=== PATIENT | female | born 1965 | race Caucasian/White ===

== ENCOUNTER 2017-01-26 11:58 | Emergency (ER) | payer OTHER ==
[2017-01-26] MEDS ORDERED: IBUPROFEN 600 MG TAB PO STA (12:49)
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
--- NOTE | 2017-01-26 13:52 | XR ---
EXAMINATION TYPE: XR shoulder complete RT DATE OF EXAM: 01/26/2017 1:48 PM COMPARISON: NONE HISTORY: Pain TECHNIQUE: 3 views FINDINGS: There is slight widening of the AC joint space. I see no fracture nor dislocation. Leno hum eral joint is intact. IMPRESSION: Slight widening of the AC joint space could relate to mild ligamentous tear. This measure s 8 mm. No fracture. Coracoclavicular joint space is normal.
--- NOTE | 2017-01-26 13:53 | XR ---
EXAMINATION TYPE: XR spine complete AP and Lat DATE OF EXAM: 01/26/2017 1:48 PM COMPARISON: NONE HISTORY: Pain TECHNIQUE: 10 views FINDINGS: Cervical thoracic and lumbar vertebra have normal alignment. Disc spaces are fairly normal. I see no compression fracture. Posterior elements appear intact. There is no thoracic paraspinal mas s. There is aortoiliac graft noted. Atlantoaxial facet joint is normal. There are no cervical ribs. IMPRESSION: Normal cervical thoracic and lumbar spine. No fracture.
[2017-01-26 14:20] VITALS: BP 150/68; PULSE 90; RESP 20; TEMP 98
== END 2017-01-26 14:19 | disposition home or self-care (01) ==
LOC: EC 11:58
DX: M25.511 Pain in right shoulder (principal); M54.2 Cervicalgia; M54.5 Low back pain; I25.10 Atherosclerotic heart disease of native coronary artery without angina pectoris; F17.200 Nicotine dependence, unspecified, uncomplicated; V43.52XA Car driver injured in collision with other type car in traffic accident, initial encounter; Y92.89 Other specified places as the place of occurrence of the external cause; Z79.82 Long term (current) use of aspirin; Z79.899 Other long term (current) drug therapy
CPT/HCPCS: 72082; 99284

== ENCOUNTER → 2017-05-16 | Outpatient (CLI) | payer OTHER ==
--- NOTE | 2017-05-21 08:21 | MM ---
Reason for exam: screening (asymptomatic). Last mammogram was performed 1 year ago. History: Family history of breast cancer in grandmother and premenopausal breast cancer in mother at age 40. Took hormonal contraceptives for 9 years. Physical Findings: A clinical breast exam by your physician is recommended on an annual basis and results should be correlated with mammographic findings. MG 3D Screening Mammo W/Cad Bilateral CC and MLO view(s) were taken. Prior study comparison: May 25, 2016, bilateral MG diagnostic mammo w CAD CAITLIN. March 29, 2015, bilateral MG screening mammo w CAD. The breast tissue is extremely dense which could obscure a lesion on mammography. Finding: There are dystrophic, linear calcifications in the upper outer quadrant, middle position of the right breast 3cm from the nipple. New finding since May 25, 2016. ASSESSMENT: Incomplete: need additional imaging evaluation, BI-RAD 0 RECOMMENDATION: Special view mammogram of the right breast. [facility] will attempt to contact patient to return for supplemental views.
== END | disposition home or self-care (01) ==
LOC: RADMAMWWP 14:45
PROVIDERS: ATTEND Family Medicine
DX: Z12.31 Encounter for screening mammogram for malignant neoplasm of breast (principal)
CPT/HCPCS: 77063; G0202

== ENCOUNTER → 2017-05-22 | Outpatient (CLI) | payer OTHER ==
--- NOTE | 2017-05-22 14:36 | MM ---
Reason for exam: additional evaluation requested from abnormal screening. Last mammogram was performed less than 1 month ago. History: Family history of breast cancer in grandmother and premenopausal breast cancer in mother at age 40. Took hormonal contraceptives for 9 years. Physical Findings: Nurse did not find any significant physical abnormalities on exam. MG 3D Work Up W/Cad RT ML, CC with magnification, and ML with magnification view(s) were taken of the right breast. Prior study comparison: May 16, 2017, bilateral MG 3d screening mammo w/cad. May 25, 2016, bilateral MG diagnostic mammo w CAD CAITLIN. The breast tissue is heterogeneously dense. This may lower the sensitivity of mammography. Finding: There are round, segmental calcifications in the 12 o'clock upper quadrant, middle position of the right breast consistent with probably benign calcifications. No significant changes in finding since May 25, 2016 and May 16, 2017. These results were verbally communicated with the patient and result sheet given to the patient on 05/22/17. ASSESSMENT: Benign, BI-RAD 2 RECOMMENDATION: Return to routine screening mammogram schedule for both breasts.
== END | disposition home or self-care (01) ==
LOC: RADMAMWWP 13:31
PROVIDERS: ATTEND Family Medicine
DX: R92.8 Other abnormal and inconclusive findings on diagnostic imaging of breast (principal)
CPT/HCPCS: G0206; G0279

== ENCOUNTER → 2018-04-07 | Outpatient (CLI) | payer OTHER ==
--- NOTE | 2018-04-07 16:54 | BD ---
EXAMINATION TYPE: Axial Bone Density DATE OF EXAM: 04/07/2018 COMPARISON: NONE CLINICAL HISTORY: 52-year-old female with known osteopenia, postmenopausal screening Height: 5 FT 3 IN Weight: 160 FRAX RISK QUESTIONS: History of Fracture in Adulthood: YES Secondary Osteoporosis: Current Tobacco Use: YES RISK FACTORS HISTORY OF: Postmenopausal woman: AGE 51 MEDICATIONS: Additional Medications: BLACK COHASH,PLAVIX, ADIPEX, SIMVASTATIN, Additional History: EXAM MEASUREMENTS: Bone mineral densitometry was performed using the [employer]. Bone mineral density as measured about the Lumbar spine is: ----- L1-L4(G/cm2): 1.347 T Score Values are as follows: ----- L2: 0.4 ----- L3: 2.0 ----- L4: 2.2 ----- L1-L4: 1.4 Bone mineral density has: INCREASED 3.8 % since study of: 2014 Bone mineral density about the R hip (g/cm2): 0.874 Bone mineral density about the L hip (g/cm2): 0.878 T Score values are as follows: -----R Neck: -1.2 -----L Neck: -1.1 -----R Total: -0.1 -----L Total: -0.2 Bone mineral density has: DECREASED -4.3 % since study of: 2014 IMPRESSION: Osteopenia (T Score between -2.5 and -1). There is slightly increased risk of fracture and the patient may be considered for treatment. Re-Screen 2-5 years. NOTE: T-SCORE=SD OF THE YOUNG ADULT MEAN.
== END | disposition home or self-care (01) ==
LOC: RADBDWWP 12:24
PROVIDERS: ATTEND Family Medicine
DX: M85.88 Other specified disorders of bone density and structure, other site (principal); M81.0 Age-related osteoporosis without current pathological fracture
CPT/HCPCS: 77080

== ENCOUNTER 2018-06-09 10:32 | Emergency (ER) | payer OTHER ==
[2018-06-09 10:41] VITALS: BP 118/70; PULSE 89; RESP 18; TEMP 98.2
--- NOTE | 2018-06-09 10:57 | ED ---
Extremity Problem HPI - General Chief complaint: Extremity Problem,Nontraumatic Stated complaint: Wrist Pain Time Seen by Provider: 06/09/18 10:47 Source: patient, RN notes reviewed, old records reviewed Mode of arrival: ambulatory Limitations: no limitations - History of Present Illness Initial comments: Patient's a 52-year-old female presents emergency room and said she bled of right wrist pain. Patient reports that she had increasing pain over the weekend within her right wrist. She denies any specific trauma. She has had previous fracture of this wrist. She reports no different in sensation or peripheral paresthesias. She reports she had no recent falls or trauma. Patient relates that she's had no surgery on the respiratory status had a simple reduction. Patient reports to follow-up with an orthopedic at that time but does not remember this was. She denies any other injury or complaints at this time. Patient denies any recent fever, chills, shortness of breath, chest pain, back pain, abdominal pain, nausea vomiting, numbness or tingling, dysuria or hematuria, constipation or diarrhea, headaches or visual changes, or any other current symptoms - Related Data Home Medications Medication Instructions Recorded Confirmed Black Cohosh 540 mg PO DAILY 06/09/18 06/09/18 Previous Rx's Medication Instructions Recorded Clopidogrel [Plavix] 75 mg PO DAILY #30 tab 05/15/14 Ibuprofen 600 mg PO TID #30 tablet 06/09/18 Allergies Allergy/AdvReac Type Severity Reaction Status Date / Time No Known Allergies Allergy Verified 06/09/18 11:07 Review of Systems ROS Statement: Those systems with pertinent positive or pertinent negative responses have been documented in the HPI. ROS Other: All systems not noted in ROS Statement are negative. Past Medical History Past Medical History: Coronary Artery Disease (CAD), Vascular Disorder Additional Past Medical History / Comment(s): diff walking due to pain in both legs and back History of Any Multi-Drug Resistant Organisms: None Reported Past Surgical History: Heart Catheterization, Heart Catheterization With Stent, Tubal Ligation Additional Past Surgical History / Comment(s): surgery for bowel obstruction, laprocopic surgery Past Anesthesia/Blood Transfusion Reactions: Motion Sickness Past Psychological History: No Psychological Hx Reported Smoking Status: Current every day smoker Past Alcohol Use History: None Reported Past Drug Use History: None Reported - Past Family History Mother Family Medical History: Cancer Father Family Medical History: Deep Vein Thrombosis (DVT) General Exam - General Exam Comments Initial Comments: 52-year-old female. Alert and oriented. No significant distress. Limitations: no limitations General appearance: alert, in no apparent distress Head exam: Present: atraumatic, normocephalic, normal inspection Eye exam: Present: normal appearance, PERRL, EOMI. Absent: scleral icterus, conjunctival injection, periorbital swelling ENT exam: Present: normal exam, mucous membranes moist Neck exam: Present: normal inspection. Absent: tenderness, meningismus, lymphadenopathy Respiratory exam: Present: normal lung sounds bilaterally. Absent: respiratory distress, wheezes, rales, rhonchi, stridor Cardiovascular Exam: Present: regular rate, normal rhythm, normal heart sounds. Absent: systolic murmur, diastolic murmur, rubs, gallop, clicks GI/Abdominal exam: Present: soft, normal bowel sounds. Absent: distended, tenderness, guarding, rebound, rigid Extremities exam: Present: normal inspection, full ROM, normal capillary refill. Absent: tenderness, pedal edema, joint swelling, calf tenderness Right Elbow exam: Present: normal inspection, full ROM Forearm Wrist exam: Present: full ROM, tenderness (Patient has tenderness over the right ulna styloid and distal radius.), swelling. Absent: normal inspection , abrasion, laceration, ecchymosis Hand Wrist exam: Present: normal inspection, full ROM Neuro motor exam: Present: wrist extension intact, thumb opposition intact, thumb IP flexion intact, thumb adduction intact, fingers 2-5 abduction intact Vascular: Present: normal capillary refill Back exam: Present: normal inspection Neurological exam: Present: alert, oriented X3, CN II-XII intact Psychiatric exam: Present: normal affect, normal mood Skin exam: Present: warm, dry, intact, normal color. Absent: rash Course Vital Signs 06/09/18 10:38 Temperature 98.2 F Pulse Rate 89 Respiratory 18 Rate Blood Pressure 118/70 O2 Sat by Pulse 98 Oximetry Medical Decision Making - Medical Decision Making 52-year-old female presents was emergently the pain over the right wrist, tenderness over the ulna styloid and distal radius. She has full range of motion. Normal sensation and normal capillary refill distally. Patient's x- ray show evidence of subchondral cyst, numbness of any acute fracture dislocation. Most likely cyst formation after her previous fracture. Patient was placed in Mark wrap, anti-inflammatory medication. Given referral for orthopedic she may have further treatments of steroid injections. Due to area of tenderness, questionable over the patient's related to de Quervain's tenosynovitis. Patient understood chief complaint will comply. Return parameters were discussed. Disposition Clinical Impression: Right wrist pain, Tendinitis Disposition: HOME SELF-CARE Condition: Good Instructions: De Quervain Disease (ED), Tendinitis (ED) Additional Instructions: Patient advised to follow-up with primary care provider. Return to emergency department if any alarming signs or symptoms occur. Take Motrin and ice over the area. Prescriptions: Ibuprofen 600 mg PO TID #30 tablet Is patient prescribed a controlled substance at d/c from ED?: No Referrals: Karl Sams DO [Primary Care Provider] - 1-2 days Juaquin Castle MD [STAFF PHYSICIAN] - 1-2 days Time of Disposition: 11:20
--- NOTE | 2018-06-09 11:12 | XR ---
EXAMINATION TYPE: XR wrist complete RT DATE OF EXAM: 06/09/2018 CLINICAL HISTORY: New onset pain. TECHNIQUE: Frontal, lateral, scaphoid, and oblique images of the right wrist are obtained. COMPARISON: None FINDINGS: There is no acute fracture/dislocation evident in the right wrist. Subchondral cyst or prateek de formation is noted in the ulnar aspect of the lunate and central aspect of the triquetrum . Lunat e capitate relationship is preserved on lateral view. Tiny ossific fragments are seen along the volar aspect of the radial lunate articulation. The overlying soft tissue appears unremarkable. IMPRESSION: As above.
== END 2018-06-09 11:31 | disposition home or self-care (01) ==
LOC: EC 10:32
DX: M77.9 Enthesopathy, unspecified (principal); M25.531 Pain in right wrist; F17.200 Nicotine dependence, unspecified, uncomplicated; I25.10 Atherosclerotic heart disease of native coronary artery without angina pectoris; Z95.5 Presence of coronary angioplasty implant and graft
CPT/HCPCS: 99284

== ENCOUNTER → 2018-08-18 | Outpatient (CLI) | payer OTHER ==
--- NOTE | 2018-08-19 13:13 | MM ---
Reason for exam: screening (asymptomatic). Last mammogram was performed 1 year and 3 months ago. History: Family history of breast cancer in grandmother and premenopausal breast cancer in mother at age 40. Took hormonal contraceptives for 9 years. Physical Findings: A clinical breast exam by your physician is recommended on an annual basis and results should be correlated with mammographic findings. MG 3D Screening Mammo W/Cad Bilateral CC and MLO view(s) were taken. Prior study comparison: May 22, 2017, right breast MG 3d work up w/cad RT. May 16, 2017, bilateral MG 3d screening mammo w/cad. No significant changes when compared with prior studies. ASSESSMENT: Benign, BI-RAD 2 RECOMMENDATION: Routine screening mammogram of both breasts in 1 year.
== END ==
LOC: RADMAMWWP 13:47
PROVIDERS: ATTEND Family Medicine
DX: Z12.31 Encounter for screening mammogram for malignant neoplasm of breast (principal)
CPT/HCPCS: 77063; 77067

== ENCOUNTER → 2018-12-05 | Outpatient (CLI) | payer OTHER | LOC: LABWHC1 09:00 | PROVIDERS: ATTEND Physical Medicine & Rehabilitation | DX: M10.9 Gout, unspecified (principal) | CPT/HCPCS: 36415; 84550 ==

== ENCOUNTER 2019-07-01 09:59 | Emergency (ER) | payer OTHER ==
[2019-07-01 10:13] VITALS: BP 167/84; PULSE 96; RESP 18; TEMP 98
--- NOTE | 2019-07-01 10:55 | XR ---
EXAMINATION TYPE: XR foot complete RT DATE OF EXAM: 07/01/2019 CLINICAL HISTORY: Stubbing injury with pain. TECHNIQUE: Frontal, lateral, and oblique images of the right foot are obtained. COMPARISON: None FINDINGS: There is no acute fracture/dislocation evident in the right foot with particular attention to the fifth toe area of clinical concern. The joint spaces in the right foot appear within normal limits. Mild subcutaneous edema is present. Overlying clothing material distal tibial level incidenta lly noted. IMPRESSION: There is no acute fracture or dislocation in the right foot.
--- NOTE | 2019-07-01 10:55 | ED ---
Lower Extremity Injury HPI - General Chief Complaint: Extremity Injury, Lower Stated Complaint: toe pain Time Seen by Provider: 07/01/19 10:23 Source: patient, RN notes reviewed Mode of arrival: ambulatory Limitations: no limitations - History of Present Illness Initial Comments: 53-year-old female presents emergency Department chief complaint of right foot fifth digit toe injury. Patient states that she stubbed her foot on a table last night. Patient states is bruised, swollen and painful. She is unable to bear weight on it. No prior injury to this. Patient also complains that she has urinary frequency, urgency. She has no associated fevers chills flank pain or abdominal pain. - Related Data Home Medications Medication Instructions Recorded Confirmed Black Cohosh 540 mg PO DAILY 06/09/18 06/09/18 Previous Rx's Medication Instructions Recorded Clopidogrel [Plavix] 75 mg PO DAILY #30 tab 05/15/14 Ibuprofen 600 mg PO TID #30 tablet 06/09/18 Ibuprofen [Motrin] 600 mg PO Q8HR PRN #30 tab 07/01/19 Phenazopyridine [Pyridium] 200 mg PO TID #6 tablet 07/01/19 Allergies Allergy/AdvReac Type Severity Reaction Status Date / Time No Known Allergies Allergy Verified 07/01/19 11:27 Review of Systems ROS Statement: Those systems with pertinent positive or pertinent negative responses have been documented in the HPI. ROS Other: All systems not noted in ROS Statement are negative. Past Medical History Past Medical History: Coronary Artery Disease (CAD), Vascular Disorder Additional Past Medical History / Comment(s): diff walking due to pain in both legs and back History of Any Multi-Drug Resistant Organisms: None Reported Past Surgical History: Heart Catheterization, Heart Catheterization With Stent, Tubal Ligation Additional Past Surgical History / Comment(s): surgery for bowel obstruction, laprocopic surgery Past Anesthesia/Blood Transfusion Reactions: Motion Sickness Past Psychological History: No Psychological Hx Reported Smoking Status: Current every day smoker Past Alcohol Use History: None Reported Past Drug Use History: None Reported - Past Family History Mother Family Medical History: Cancer Father Family Medical History: Deep Vein Thrombosis (DVT) General Exam Limitations: no limitations General appearance: alert, in no apparent distress Head exam: Present: atraumatic, normocephalic, normal inspection Neck exam: Present: normal inspection. Absent: tenderness, meningismus, lymphadenopathy Respiratory exam: Present: normal lung sounds bilaterally. Absent: respiratory distress, wheezes, rales, rhonchi, stridor Cardiovascular Exam: Present: regular rate, normal rhythm, normal heart sounds. Absent: systolic murmur, diastolic murmur, rubs, gallop, clicks GI/Abdominal exam: Present: soft, normal bowel sounds. Absent: distended, tenderness, guarding, rebound, rigid Back exam: Absent: CVA tenderness (R), CVA tenderness (L) Neurological exam: Present: alert, oriented X3, CN II-XII intact Skin exam: Present: warm, dry, intact, normal color. Absent: rash Course Vital Signs 07/01/19 10:09 Temperature 98 F Pulse Rate 96 Respiratory 18 Rate Blood Pressure 167/84 O2 Sat by Pulse 99 Oximetry Medical Decision Making - Medical Decision Making Urinalysis reveals no evidence of urinary tract infection. Patient we given Pyridium for urinary frequency, bladder spasms. X-ray shows no acute fracture per radiology reading. Patient has a right toe contusion. Patient will be discharged return parameters were discussed. - Lab Data Lab Results 07/01/19 Range/Units 11:11 Urine Color Yellow Urine Appearance Cloudy H (Clear) Urine pH 5.5 (5.0-8.0) Ur Specific [place] 1.011 (1.001-1.035) Urine Protein Negative (Negative) Urine Glucose (UA) Negative (Negative) Urine Ketones Negative (Negative) Urine Blood Trace H (Negative) Urine Nitrite Negative (Negative) Urine Bilirubin Negative (Negative) Urine Urobilinogen <2.0 (<2.0) mg/dL Ur Leukocyte Esterase Negative (Negative) Urine RBC 1 (0-5) /hpf Urine WBC <1 (0-5) /hpf Ur Squamous Epith Cells 22 H (0-4) /hpf Urine Bacteria Rare H (None) /hpf Urine Mucus Rare H (None) /hpf Disposition Clinical Impression: Sprain of toe, fifth, right, Polyuria Disposition: HOME SELF-CARE Condition: Stable Instructions (If sedation given, give patient instructions): Foot Sprain (ED) Additional Instructions: Please return to the Emergency Department if symptoms worsen or any other concerns. Prescriptions: Ibuprofen [Motrin] 600 mg PO Q8HR PRN #30 tab PRN Reason: Pain Phenazopyridine [Pyridium] 200 mg PO TID #6 tablet Is patient prescribed a controlled substance at d/c from ED?: No Referrals: Karl Sams DO [Primary Care Provider] - 1-2 days Time of Disposition: 11:30
[2019-07-01 11:18] LABS: Appearance,Urine Cloudy (Clear); Bacteria,Urine Rare /hpf; Bilirubin,Urine Negative (Negative); Blood,Urine Trace (Negative); Color,Urine Yellow; Glucose,Urine (UA) Negative (Negative); Ketones,Urine Negative (Negative); Leukocyte Esterase,Urine Negative (Negative); Mucus,Urine Rare /hpf; Nitrite,Urine Negative (Negative); PH, Urine 5.5 (5.0-8.0); Protein,Urine Negative (Negative); RBC,Urine 1 /hpf (0-5); Specific Gravity,Urine 1.011 (1.001-1.035); Squamous Epithelial Cell,Urine 22 /hpf (0-4); Urobilinogen,Urine <2.0 mg/dL (<2.0)
[2019-07-01] MEDS ORDERED: ACET/COD 300 MG/30 MG STARTER PACK 6 TAB BTL PO STA (11:30)
== END 2019-07-01 11:44 | disposition home or self-care (01) ==
LOC: EC 09:59
DX: S93.504A Unspecified sprain of right lesser toe(s), initial encounter (principal); R35.8 Other polyuria; I25.10 Atherosclerotic heart disease of native coronary artery without angina pectoris; F17.200 Nicotine dependence, unspecified, uncomplicated; Z95.5 Presence of coronary angioplasty implant and graft; W22.8XXA Striking against or struck by other objects, initial encounter
CPT/HCPCS: 81001; 99283

== ENCOUNTER 2019-07-20 08:54 | Emergency (ER) | payer OTHER ==
[2019-07-20 09:03] VITALS: BP 156/68; PULSE 103; RESP 18; TEMP 98.1
--- NOTE | 2019-07-20 09:29 | ED ---
General Adult HPI - General Chief complaint: Extremity Problem,Nontraumatic Stated complaint: rt hand pain Time Seen by Provider: 07/20/19 09:08 Source: patient, RN notes reviewed Mode of arrival: ambulatory Limitations: no limitations - History of Present Illness Initial comments: Patient is a pleasant 53-year-old female complaining of discomfort of her right hand. Onset of symptoms was 2 weeks ago. Symptoms have somewhat worsened since that time. Patient states there may be a little bit of swelling. Patient states area discomfort is the third and fourth MCP and the proximal phalanx distally to this. Patient does have difficulty with full corsetier of her hand. Patient states it is painful. No arm involvement. No history of similar symptoms previously. Patient denies any repetitive use of the hand. Patient denies any trauma. No other area of concern. No redness or fevers. - Related Data Home Medications Medication Instructions Recorded Confirmed Atorvastatin [Lipitor] 10 mg PO DAILY 07/20/19 07/20/19 Cyclobenzaprine [Flexeril] 10 mg PO TID PRN 07/20/19 07/20/19 HYDROcodone/APAP 10-325MG [[place] 1 tab PO Q4HR PRN 07/20/19 07/20/19 10-325] Previous Rx's Medication Instructions Recorded Ibuprofen [Motrin] 600 mg PO Q6HR PRN #20 tab 07/20/19 Allergies Allergy/AdvReac Type Severity Reaction Status Date / Time No Known Allergies Allergy Verified 07/20/19 09:45 Review of Systems ROS Statement: Those systems with pertinent positive or pertinent negative responses have been documented in the HPI. ROS Other: All systems not noted in ROS Statement are negative. Constitutional: Denies: fever Eyes: Denies: eye pain ENT: Denies: ear pain Respiratory: Denies: cough Cardiovascular: Denies: chest pain Endocrine: Denies: fatigue Gastrointestinal: Denies: abdominal pain Genitourinary: Denies: dysuria Musculoskeletal: Reports: as per HPI Skin: Denies: rash Neurological: Denies: headache Past Medical History Past Medical History: Coronary Artery Disease (CAD), Vascular Disorder Additional Past Medical History / Comment(s): diff walking due to pain in both legs and back History of Any Multi-Drug Resistant Organisms: None Reported Past Surgical History: Heart Catheterization, Heart Catheterization With Stent, Tubal Ligation Additional Past Surgical History / Comment(s): surgery for bowel obstruction, laprocopic surgery Past Anesthesia/Blood Transfusion Reactions: Motion Sickness Past Psychological History: No Psychological Hx Reported Smoking Status: Current every day smoker Past Alcohol Use History: None Reported Past Drug Use History: None Reported - Past Family History Mother Family Medical History: Cancer Father Family Medical History: Deep Vein Thrombosis (DVT) General Exam Limitations: no limitations General appearance: alert, in no apparent distress Head exam: Present: normocephalic Neck exam: Present: normal inspection Respiratory exam: Present: normal lung sounds bilaterally Cardiovascular Exam: Present: regular rate, normal rhythm GI/Abdominal exam: Present: soft. Absent: tenderness Extremities exam: Present: other (Right hand with minimal swelling of the third and fourth MCP and proximal phalanx just distally to this. Patient does have difficulty with full flexion of the finger secondary to discomfort. No erythema. Distally the fingers have good cap refill and sensation is intact. No erythema. No warmth.) Neurological exam: Present: alert Psychiatric exam: Present: normal affect, normal mood Skin exam: Present: normal color. Absent: rash, erythema Course Vital Signs 07/20/19 09:00 Temperature 98.1 F Pulse Rate 103 H Respiratory 18 Rate Blood Pressure 156/68 O2 Sat by Pulse 99 Oximetry - Reevaluation(s) Reevaluation #1: 07/20/19 12:26 Patient was seen by practitioner sherin rojas who did not have concern for emergent condition and will follow-up with the patient in the office this week. He recommends NSAIDs. Medical Decision Making - Medical Decision Making Orthopedics was paged. Case was discussed with practitioner sherin rojas who was earlier in the OR and states he will come evaluate. Patient was updated regard ing delay. - Radiology Data Radiology results: image reviewed (X-ray of the right hand shows no acute fracture or dislocation. Slight sclerosis of the lunate. Mild arthropathy of the wrist.) Disposition Clinical Impression: Right hand pain Disposition: HOME SELF-CARE Condition: Stable Instructions (If sedation given, give patient instructions): Arthralgia (ED) Additional Instructions: Please follow-up with Dr. Massey this week as planned. Return for redness or fever, increased pain or swelling, worsening symptoms or other concerns. Motrin prescription sent to [facility]. Prescriptions: Ibuprofen [Motrin] 600 mg PO Q6HR PRN #20 tab PRN Reason: Pain Is patient prescribed a controlled substance at d/c from ED?: No Referrals: Karl Sams DO [Primary Care Provider] - 1-2 days Alan Massey DO [Doctor of Osteopathic Medicine] - 1-2 days Time of Disposition: 12:27
--- NOTE | 2019-07-20 09:43 | XR ---
EXAMINATION TYPE: XR hand complete RT DATE OF EXAM: 07/20/2019 CLINICAL HISTORY: Right hand pain with no known injury. TECHNIQUE: Frontal, lateral and oblique images of the right hand are obtained. COMPARISON: None. FINDINGS: There is no acute fracture/dislocation evident in the right hand. The joint spaces in the right hand appear aligned. Cystic change, likely degenerative of the carpal bones is seen. There is s light sclerosis and nearly trying to appearance of the lunate on the AP view however no perilunate di slocation is seen on the lateral view. Mild narrowing of the first carpometacarpal joint. The overly ing soft tissue appears unremarkable. IMPRESSION: 1. No acute fracture or dislocation in the right hand. 2. Slight sclerosis of the lunate and abnormal morphology and a single view only. MRI could evaluate for avascular necrosis of the lunate or lunate/perilunate instability as MR could evaluate the ligame nts. 3. 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
--- NOTE | 2019-07-20 12:15 | P.CNOR ---
History of Present Illness - HPI Consult date: 07/20/19 Consult reason: joint pain History of present illness: Patient is a 53-year-old female who presented to [facility] emergency room today with regards to pain and swelling involving the right hand. She states that the pain and swelling in the hands been there for about 2 weeks and this progressively get worse. She denies any significant trauma. She denies any new change in activity level. Upon arrival to the hospital, imaging test were done. Images demonstrated no acute fractures or dislocations. I was contacted by the emergency room staff regarding this patient, I did report to the ER to examine patient. At bedside, she is resting comfortably. She notes most discomfort near the third and fourth digit, swelling and pain on the dorsal side through the MCP joint. She also notes some discomfort on the palmar side. She does have a few abrasions on the dorsal and palmar aspect of the hand, this is from her new dog she states. These happened in the last day or so, there are scabs present. Eyes any fevers or chills at this time. She denies any symptoms involving the other hand. Review of Systems Constitutional: Reports as per HPI Past Medical History Past Medical History: Coronary Artery Disease (CAD), Vascular Disorder Additional Past Medical History / Comment(s): diff walking due to pain in both legs and back History of Any Multi-Drug Resistant Organisms: None Reported Past Surgical History: Heart Catheterization, Heart Catheterization With Stent, Tubal Ligation Additional Past Surgical History / Comment(s): surgery for bowel obstruction, laprocopic surgery Past Anesthesia/Blood Transfusion Reactions: Motion Sickness Past Psychological History: No Psychological Hx Reported Smoking Status: Current every day smoker Past Alcohol Use History: None Reported Past Drug Use History: None Reported - Past Family History Mother Family Medical History: Cancer Father Family Medical History: Deep Vein Thrombosis (DVT) Medications and Allergies Home Medications Medication Instructions Recorded Confirmed Type Atorvastatin [Lipitor] 10 mg PO DAILY 07/20/19 07/20/19 History Cyclobenzaprine [Flexeril] 10 mg PO TID PRN 07/20/19 07/20/19 History HYDROcodone/APAP 10-325MG [[place] 1 tab PO Q4HR PRN 07/20/19 07/20/19 History 10-325] Allergies Allergy/AdvReac Type Severity Reaction Status Date / Time No Known Allergies Allergy Verified 07/20/19 09:45 Physical Examination Right upper extremity: Obvious swelling of the MCP joints of the third and fourth when compared to the contralateral side. There is swelling noted in the digits also. There are no significant areas of erythema present. There are a few scabs noted on the dorsal and palmar aspect of the hand, these are all scabbed over. I cannot appreciate any areas of fluctuance. There are no open wounds or drainage visualized. Range of motion of the fingers is limited at the third and fourth, she has a difficult time making a full fist. Extending the fingers also reproduces some discomfort on the palmar side. Her sensation to light touch throughout that extremity is intact. Radial pulse 2+ Results - Diagnostic results Wrist/Hand x-ray: report reviewed, image reviewed Assessment and Plan Plan: Imaging: X-rays of the hand were obtained in the ER, they are negative for any acute fractures or dislocations Assessment: 1. Right hand swelling/pain 2. Possible Dupuytren's contracture 3. Possible inflammatory arthritis Plan: I was able to discuss the case, including the physical exam findings and imaging studies my attending Dr. Massey. I'm not concerned at this time for a infectious process involving the right hand. I advised the patient icing of the hand along with utilizing an anti- inflammatory daily. I also advised basic range of motion exercises with hand. Discussed with patient to call office today to schedule follow-up with Dr. Massey the next week to 10 days. Explained to patient if she notices worsening symptoms, this including redness, swelling, open lesion, fever chills report back to the hospital. Time with Patient: Less than 30
== END 2019-07-20 12:30 | disposition home or self-care (01) ==
LOC: EC 08:54
DX: M79.641 Pain in right hand (principal); I25.10 Atherosclerotic heart disease of native coronary artery without angina pectoris; F17.200 Nicotine dependence, unspecified, uncomplicated; Z95.818 Presence of other cardiac implants and grafts; Z95.5 Presence of coronary angioplasty implant and graft; Z79.899 Other long term (current) drug therapy
CPT/HCPCS: 99284

== ENCOUNTER → 2019-08-19 | Outpatient (CLI) | payer OTHER ==
--- NOTE | 2019-08-20 11:52 | MM ---
Reason for exam: screening (asymptomatic). Last mammogram was performed 1 year ago. History: Family history of breast cancer in grandmother and premenopausal breast cancer in mother at age 40. Took hormonal contraceptives for 9 years. Physical Findings: A clinical breast exam by your physician is recommended on an annual basis and results should be correlated with mammographic findings. MG 3D Screening Mammo W/Cad Bilateral CC and MLO view(s) were taken. Prior study comparison: August 18, 2018, bilateral MG 3d screening mammo w/cad. May 22, 2017, right breast MG 3d work up w/cad RT. The breast tissue is heterogeneously dense. This may lower the sensitivity of mammography. There is a 1.0cm left upper outer quadrant mass 8cm from nipple. On the right breast 6.5cm from nipple there is an upper outer quadrant focal asymmetry on MLO 3D and CC . ASSESSMENT: Incomplete: need additional imaging evaluation, BI-RAD 0 RECOMMENDATION: Special view mammogram of the left breast. If lesion persists on supplemental views, image directed ultrasound is recommended. [facility] will attempt to contact patient to return for supplemental views and ultrasound if indicated.
== END | disposition home or self-care (01) ==
LOC: RADMAMWWP 08:50
PROVIDERS: ATTEND Family Medicine
DX: Z12.31 Encounter for screening mammogram for malignant neoplasm of breast (principal)
CPT/HCPCS: 77063; 77067

== ENCOUNTER → 2019-08-31 | Outpatient (CLI) | payer OTHER ==
--- NOTE | 2019-09-01 07:53 | MM ---
Reason for exam: additional evaluation requested from abnormal screening. Last mammogram was performed less than 1 month ago. History: Patient is postmenopausal. Family history of breast cancer in grandmother and premenopausal breast cancer in mother at age 40. Took hormonal contraceptives for 9 years. Physical Findings: Nurse Summary: 1.5cm nodule in the left breast at 11 o'clock (nurse tori). MG 3D Work Up W/Cad [place]LIN Bilateral spot compression CC, spot compression MLO, and LM view(s) were taken. Prior study comparison: August 19, 2019, bilateral MG 3d screening mammo w/cad. August 18, 2018, bilateral MG 3d screening mammo w/cad. The breast tissue is heterogeneously dense. This may lower the sensitivity of mammography. The previously seen abnormality resolves on additional views and appears as fibroglandular tissue compatible with summation on the right breast. Left upper outer quadrant focal asymmetry persists near the BB marker. These results were verbally communicated with the patient and result sheet given to the patient on 08/31/19. ASSESSMENT: Incomplete: need additional imaging evaluation, BI-RAD 0 RECOMMENDATION: Ultrasound of the left breast. upper outer quadrant
--- NOTE | 2019-09-01 07:54 | USB ---
Reason for exam: additional evaluation requested from abnormal screening. History: Patient is postmenopausal. Family history of breast cancer in grandmother and premenopausal breast cancer in mother at age 40. Took hormonal contraceptives for 9 years. US Breast Workup Limited LT Left limited breast ultrasound including focal area of concern, retroareolar and axilla demonstrates a 0.3 x 0.3 x 0.1cm oval, cystic lesion at 3 o'clock. These results were verbally communicated with the patient and result sheet given to the patient on 08/31/19. ASSESSMENT: Probably benign, BI-RAD 3 RECOMMENDATION: Follow-up diagnostic mammogram of the left breast in 6 months.
== END | disposition home or self-care (01) ==
LOC: RADMAMWWP 14:34
PROVIDERS: ATTEND Family Medicine
DX: R92.8 Other abnormal and inconclusive findings on diagnostic imaging of breast (principal)
CPT/HCPCS: 77066; 76642; G0279; 77062

== ENCOUNTER 2019-10-26 09:29 | Emergency (ER) | payer OTHER ==
[2019-10-26 09:42] VITALS: PULSE 91; RESP 18; TEMP 98
--- NOTE | 2019-10-26 10:56 | XR ---
EXAMINATION TYPE: XR hand complete RT DATE OF EXAM: 10/26/2019 COMPARISON: NONE HISTORY: Pain TECHNIQUE: Three views are submitted. FINDINGS: The osseous structures are intact. The joint spaces are preserved and there is no acute fracture or dislocation. Cystic changes of the lunate. IMPRESSION: 1. No definite acute fracture or dislocation if symptoms persist, follow-up study in 7 to 10 days wo uld be suggested 2. Cystic changes involving the carpal bones. There is some sclerosis of the lunate. Recommend follow -up MRI to assess for Kienb?ck's malacia.
[2019-10-26] MEDS ORDERED: ACET/COD 300 MG/30 MG STARTER PACK 6 TAB BTL PO STA (11:02)
[2019-10-26] MEDS ORDERED: KETOROLAC 30 MG/ML 1 ML VIAL IM STA (11:02)
--- NOTE | 2019-10-26 11:08 | ED ---
Upper Extremity HPI - General Chief Complaint: Extremity Injury, Upper Stated Complaint: right hand pain Time Seen by Provider: 10/26/19 09:44 Source: patient, RN notes reviewed, old records reviewed Mode of arrival: ambulatory Limitations: no limitations - History of Present Illness Initial Comments: 54 year old female with CC of R hand and wrist pain. PAtient reports pain is worse over past week, and worse with ROM. Patient reports numbness and pinching sensation over digit 3-5. PAtietn is right handed. - Related Data Home Medications Medication Instructions Recorded Confirmed Atorvastatin [Lipitor] 10 mg PO DAILY 07/20/19 07/20/19 Cyclobenzaprine [Flexeril] 10 mg PO TID PRN 07/20/19 07/20/19 HYDROcodone/APAP 10-325MG [[place] 1 tab PO Q4HR PRN 07/20/19 07/20/19 10-325] Previous Rx's Medication Instructions Recorded Ibuprofen [Motrin] 600 mg PO Q6HR PRN #20 tab 07/20/19 Ibuprofen [Motrin] 600 mg PO Q6HR PRN #20 tab 10/26/19 Allergies Allergy/AdvReac Type Severity Reaction Status Date / Time No Known Allergies Allergy Verified 10/26/19 09:39 Review of Systems ROS Statement: Those systems with pertinent positive or pertinent negative responses have been documented in the HPI. ROS Other: All systems not noted in ROS Statement are negative. Past Medical History Past Medical History: Coronary Artery Disease (CAD), Vascular Disorder Additional Past Medical History / Comment(s): diff walking due to pain in both legs and back History of Any Multi-Drug Resistant Organisms: None Reported Past Surgical History: Heart Catheterization, Heart Catheterization With Stent, Tubal Ligation Additional Past Surgical History / Comment(s): surgery for bowel obstruction, laprocopic surgery Past Anesthesia/Blood Transfusion Reactions: Motion Sickness Past Psychological History: No Psychological Hx Reported Smoking Status: Current every day smoker Past Alcohol Use History: None Reported Past Drug Use History: None Reported - Past Family History Mother Family Medical History: Cancer Father Family Medical History: Deep Vein Thrombosis (DVT) General Exam - General Exam Comments Initial Comments: 54 year old female, no distress. Limitations: no limitations General appearance: alert, in no apparent distress Head exam: Present: atraumatic, normocephalic, normal inspection Eye exam: Present: normal appearance, PERRL, EOMI. Absent: scleral icterus, conjunctival injection, periorbital swelling ENT exam: Present: normal exam, mucous membranes moist Neck exam: Present: normal inspection. Absent: tenderness, meningismus, lymphadenopathy Cardiovascular Exam: Present: regular rate, normal rhythm, normal heart sounds. Absent: systolic murmur, diastolic murmur, rubs, gallop, clicks GI/Abdominal exam: Present: soft, normal bowel sounds. Absent: distended, tenderness, guarding, rebound, rigid Right Shoulder Exam: Present: normal inspection, full ROM Upper Arm exam: Present: normal inspection, full ROM Elbow exam: Present: normal inspection Forearm Wrist exam: Present: normal inspection, full ROM, tenderness (over wrist) Hand Wrist exam: Present: tenderness (over distal radius and ulna. ). Absent: normal inspection Neuro motor exam: Present: wrist extension intact, thumb opposition intact, thumb IP flexion intact, thumb adduction intact, fingers 2-5 abduction intact Vascular: Present: normal capillary refill Neurological exam: Present: alert, oriented X3, CN II-XII intact Course Vital Signs 10/26/19 10/26/19 09:39 11:27 Temperature 98 F 98 F Pulse Rate 91 91 Respiratory 18 18 Rate Blood Pressure 160/90 151/87 O2 Sat by Pulse 97 97 Oximetry Procedures - Orthopedic Splinting/Casting Injury #1 Side: right Upper Extremity Injury Location: wrist Upper Extremity Immobilizer: volar splint, Mark wrap, synthetic pre-padded splint Medical Decision Making - Medical Decision Making 54 year old with R wrist and hand pain, and shooting pain. She has tenderness over metacarplas. Xray shows no fracture, but concern for [place]ienbeck malacia. She has upcoming appt with ortho. Given volar splint and patient is neurovascularly intact. Discussed may need MRI and needs ortho follow up. Return parameters discussed. - Radiology Data Radiology results: report reviewed No fracture or dislocation in R hand. Follow up in 7 days suggested. Cystic changes in carpal bones, some sclerosis of lunate. Recommend MRI for assess Kienbick malacia. Disposition Clinical Impression: Abnormal x-ray, Wrist pain Disposition: HOME SELF-CARE Condition: Good Instructions (If sedation given, give patient instructions): Wrist Injury (ED), Osteoarthritis (ED) Additional Instructions: Patient advised to rest, ice, elevate the hand. Take anti-inflammatory medicine. Recommended following up with orthopedic. Return to the ED if any alarming signs or symptoms occur. Prescriptions: Ibuprofen [Motrin] 600 mg PO Q6HR PRN #20 tab PRN Reason: Pain Is patient prescribed a controlled substance at d/c from ED?: No Referrals: Karl Sams DO [Primary Care Provider] - 1-2 days Delvis Rizvi DO [Medical Doctor] - 1-2 days Time of Disposition: 11:08
[2019-10-26 11:27] VITALS: BP 151/87
== END 2019-10-26 11:27 | disposition home or self-care (01) ==
LOC: EC 09:29
DX: M25.531 Pain in right wrist (principal); R20.0 Anesthesia of skin; R93.89 Abnormal findings on diagnostic imaging of other specified body structures; I25.10 Atherosclerotic heart disease of native coronary artery without angina pectoris; F17.200 Nicotine dependence, unspecified, uncomplicated; Z79.899 Other long term (current) drug therapy; Z95.5 Presence of coronary angioplasty implant and graft
CPT/HCPCS: 73130; 99284; 29125; 96372; J1885

== ENCOUNTER 2019-11-10 10:53 | Emergency (ER) | payer OTHER ==
[2019-11-10 11:03] VITALS: BP 161/75; PULSE 92; RESP 18; TEMP 98
--- NOTE | 2019-11-10 11:31 | ED ---
General Adult HPI - General Chief complaint: Extremity Injury, Upper Stated complaint: Fall, hand injury Time Seen by Provider: 11/10/19 11:00 Source: patient, RN notes reviewed, old records reviewed Mode of arrival: ambulatory Limitations: no limitations - History of Present Illness Initial comments: This a 54-year-old female who presents emergency department claiming that she is having fifth metacarpal pain since she fell last night walk up steps. Patient states she just stumbled up steps. Since her fifth metacarpal is tender. Patient denies any wrist pain. Patient denies any finger or thumb pain. Patient denies any head injury neck injury chest injury or back injury. Patient denies any other injury at this time. - Related Data Home Medications Medication Instructions Recorded Confirmed Atorvastatin [Lipitor] 10 mg PO DAILY 07/20/19 07/20/19 Cyclobenzaprine [Flexeril] 10 mg PO TID PRN 07/20/19 07/20/19 HYDROcodone/APAP 10-325MG [[place] 1 tab PO Q4HR PRN 07/20/19 07/20/19 10-325] Previous Rx's Medication Instructions Recorded Ibuprofen [Motrin] 600 mg PO Q6HR PRN #20 tab 07/20/19 Ibuprofen [Motrin] 600 mg PO Q6HR PRN #20 tab 10/26/19 Allergies Allergy/AdvReac Type Severity Reaction Status Date / Time No Known Allergies Allergy Verified 10/26/19 09:39 Review of Systems ROS Statement: Those systems with pertinent positive or pertinent negative responses have been documented in the HPI. ROS Other: All systems not noted in ROS Statement are negative. Past Medical History Past Medical History: Coronary Artery Disease (CAD), Vascular Disorder Additional Past Medical History / Comment(s): diff walking due to pain in both legs and back History of Any Multi-Drug Resistant Organisms: None Reported Past Surgical History: Heart Catheterization, Heart Catheterization With Stent, Tubal Ligation Additional Past Surgical History / Comment(s): surgery for bowel obstruction, laprocopic surgery Past Anesthesia/Blood Transfusion Reactions: Motion Sickness Past Psychological History: No Psychological Hx Reported Smoking Status: Current every day smoker Past Alcohol Use History: None Reported Past Drug Use History: None Reported - Past Family History Mother Family Medical History: Cancer Father Family Medical History: Deep Vein Thrombosis (DVT) General Exam - General Exam Comments Initial Comments: GENERAL Patient is well-developed and well-nourished. Patient is in mild distress. EYES Patient's pupils are equal and round. Extraocular motion is intact SKIN Unremarkable NEURO The patient is alert and oriented 3 PYSCH Patient has normal interpersonal interactions. MUSCULOSKELETAL Patient has tenderness along the left fifth metacarpal. Patient has no wrist tenderness no finger tenderness no other metacarpal tenderness. Patient denies any other injury at this time. Limitations: no limitations Course Vital Signs 11/10/19 10:58 Temperature 98.0 F Pulse Rate 92 Respiratory 18 Rate Blood Pressure 161/75 O2 Sat by Pulse 98 Oximetry Medical Decision Making - Medical Decision Making X-ray shows no fractured bones and no dislocations. Disposition Clinical Impression: Contusion, hand Disposition: HOME SELF-CARE Condition: Good Instructions (If sedation given, give patient instructions): Contusion in Adults (ED) Additional Instructions: Patient should take Motrin 600 mg by mouth every 6 hours Is patient prescribed a controlled substance at d/c from ED?: No Referrals: Karl Sams DO [Primary Care Provider] - 1-2 days Time of Disposition: 11:59
--- NOTE | 2019-11-10 11:56 | XR ---
Left hand HISTORY: Trauma and pain 3 views of the left hand Bone mineralization, joint spaces and alignment are maintained. Sclerotic density distal phalanx of t he second digit likely represents bone island. IMPRESSION: No fracture or dislocation.
== END 2019-11-10 12:09 | disposition home or self-care (01) ==
LOC: EC 10:53
DX: S60.222A Contusion of left hand, initial encounter (principal); I25.10 Atherosclerotic heart disease of native coronary artery without angina pectoris; Z79.02 Long term (current) use of antithrombotics/antiplatelets; F17.200 Nicotine dependence, unspecified, uncomplicated; Z79.899 Other long term (current) drug therapy; Z95.5 Presence of coronary angioplasty implant and graft; W10.9XXA Fall (on) (from) unspecified stairs and steps, initial encounter; Y93.01 Activity, walking, marching and hiking; Y92.009 Unspecified place in unspecified non-institutional (private) residence as the place of occurrence of the external cause
CPT/HCPCS: 99284

== ENCOUNTER → 2020-06-10 | Outpatient (CLI) | payer MEDICARE ==
[2020-06-10 13:44] LABS: HCT 47.8 % (34.0-46.0); MCH 32.7 pg (25.0-35.0); MCHC 33.5 g/dL (31.0-37.0); MCV 97.5 fL (80.0-100.0); Mean Platelet Volume 6.9; Platelet Count 214 k/uL (150-450); RDW 14.6 % (11.5-15.5); WBC 6.6 k/uL (3.8-10.6)
[2020-06-10 19:53] LABS: African American GFR (CKD) 97.6 (60.0-200.0); Albumin 4.4 g/dL (3.80-4.90); Albumin/Globulin Ratio 2.1 (1.60-3.17); Anion Gap 8.1 mmol/L (4.00-12.00); BUN/Creat Ratio 13.75 Ratio (12.00-20.00); Calcium 9.5 mg/dL (8.7-10.3); Carbon Dioxide 23.9 mmol/L (21.6-31.8); Chol/HDL Ratio 4.88; Globulin 2.1 g/dL (1.6-3.3); LDL Cholesterol,Calculated 169.4 mg/dL (0.0-131.0); Magnesium 2.2 mg/dL (1.5-2.4); Non-African American GFR(CKD) 84.2 (60.0-200.0); Potassium 4.1 mmol/L (3.5-5.5); Total Bilirubin 0.4 mg/dL (0.3-1.2); Total Protein 6.5 g/dL (6.2-8.2); VLDL Calculation 24.6 mg/dL (5.00-40.00)
== END | disposition home or self-care (01) ==
LOC: LABWHC1 12:00
PROVIDERS: ATTEND Nurse Practitioner Adult Health
DX: I10 Essential (primary) hypertension (principal); E78.5 Hyperlipidemia, unspecified
CPT/HCPCS: 36415; 80053; 80061; 83735; 85027

== ENCOUNTER → 2020-06-16 | Outpatient (CLI) | payer MEDICARE ==
--- NOTE | 2020-06-16 14:39 | MM ---
Reason for exam: follow-up at short interval from prior study. Last mammogram was performed 10 months ago. History: Patient is postmenopausal. Family history of breast cancer in grandmother and premenopausal breast cancer in mother at age 40. Took hormonal contraceptives for 9 years. Physical Findings: Nurse did not find any significant physical abnormalities on exam. MG 3D Diag Mammo W/Cad LT CC and MLO view(s) were taken of the left breast. Prior study comparison: August 31, 2019, bilateral MG 3d work up w/cad [facility]. August 19, 2019, bilateral MG 3d screening mammo w/cad. The breast tissue is heterogeneously dense. This may lower the sensitivity of mammography. There is no discrete abnormality including area of concern. No significant new findings when compared with previous films. These results were verbally communicated with the patient and result sheet given to the patient on 06/16/20. ASSESSMENT: Benign, BI-RAD 2 RECOMMENDATION: Return to routine screening mammogram schedule for both breasts. Back on schedule for August 2020.
== END | disposition home or self-care (01) ==
LOC: RADMAMWWP 13:58
PROVIDERS: ATTEND Family Medicine
DX: R92.8 Other abnormal and inconclusive findings on diagnostic imaging of breast (principal)
CPT/HCPCS: 77065; G0279; 77061

== ENCOUNTER → 2022-04-20 | Outpatient (CLI) | payer MEDICARE, OTHER ==
--- NOTE | 2022-04-23 10:03 | MM ---
Reason for Exam: Screening (asymptomatic). Last mammogram was performed 2 year(s) and 8 month(s) ago. Patient History: Menarche at age 12. First Full-Term at age 20. Postmenopausal. Patient used Hormonal Contraceptives for 9 years. Maternal grandmother had breast cancer under age 50. Niece had breast cancer, age 29. Maternal aunt had breast cancer, age 50. Mother had breast cancer, age 40. Risk Values: Shyla 5 year model risk: 2.4%. NCI Lifetime model risk: 16.1%. Prior Study Comparison: 08/19/2019 Bilateral Screening Mammogram, [facility]. 08/31/2019 Bilateral Diagnostic Mammogram, [facility]. 06/16/2020 Left Diagnostic Mammogram, [facility]. Tissue Density: There are scattered fibroglandular densities. Findings: Analyzed By CAD. Abdomen appears symmetrical and stable. No significant interval changes are evident. No suspicious groups of microcalcifications, spiculated or lobular masses, architectural distortion or other secondary signs of malignancy are mammographically apparent. Overall Assessment: Benign, BI-RAD 2 Management: Screening Mammogram of both breasts in 1 year. A negative mammogram report should not preclude additional follow up of suspicious palpable abnormalities. Patient should continue monthly self breast exam. A clinical breast exam by your physician is recommended on an annual basis and results should be correlated with mammographic findings. Electronically signed and approved by: Jesús Siddiqi D.O. Radiologis
== END | disposition home or self-care (01) ==
LOC: RADMAMWWP 09:02
PROVIDERS: ATTEND Family Medicine
DX: Z12.31 Encounter for screening mammogram for malignant neoplasm of breast (principal); Z80.3 Family history of malignant neoplasm of breast
CPT/HCPCS: 77063; 77067

== ENCOUNTER 2022-12-21 13:10 | Emergency (ER) | payer MEDICARE, OTHER ==
[2022-12-21 13:24] VITALS: BP 112/74; PULSE 88; RESP 18
--- NOTE | 2022-12-21 13:50 | ED ---
General Adult HPI - General Chief complaint: Skin/Abscess/Foreign Body Stated complaint: stomach wound Time Seen by Provider: 12/21/22 13:38 Source: patient, RN notes reviewed, old records reviewed Mode of arrival: ambulatory Limitations: no limitations - History of Present Illness Initial comments: 57-year-old female presenting for evaluation of pain and swelling to the left lower breast. Patient noticed this about a week ago. She states there was some drainage. She noticed that the area was hard and inflamed. Patient is not a diabetic. She had no fever. - Related Data Home Medications Medication Instructions Recorded Confirmed Atorvastatin [Lipitor] 10 mg PO DAILY 07/20/19 07/20/19 Cyclobenzaprine [Flexeril] 10 mg PO TID PRN 07/20/19 07/20/19 HYDROcodone/APAP 10-325MG [[place] 1 tab PO Q4HR PRN 07/20/19 07/20/19 10-325] Previous Rx's Medication Instructions Recorded Ibuprofen [Motrin] 600 mg PO Q6HR PRN #20 tab 07/20/19 Ibuprofen [Motrin] 600 mg PO Q6HR PRN #20 tab 10/26/19 Sulfamethox-Tmp 800-160Mg [Bactrim 1 tab PO Q12HR 10 Days #20 tab 12/21/22 DS 800-160 mg] Allergies Allergy/AdvReac Type Severity Reaction Status Date / Time No Known Allergies Allergy Verified 12/21/22 13:24 Review of Systems ROS Statement: Those systems with pertinent positive or pertinent negative responses have been documented in the HPI. ROS Other: All systems not noted in ROS Statement are negative. Past Medical History Past Medical History: Coronary Artery Disease (CAD), Vascular Disorder Additional Past Medical History / Comment(s): diff walking due to pain in both legs and back History of Any Multi-Drug Resistant Organisms: None Reported Past Surgical History: Heart Catheterization, Heart Catheterization With Stent, Tubal Ligation Additional Past Surgical History / Comment(s): surgery for bowel obstruction, laprocopic surgery Past Anesthesia/Blood Transfusion Reactions: Motion Sickness Past Psychological History: No Psychological Hx Reported Smoking Status: Current every day smoker Past Alcohol Use History: None Reported Past Drug Use History: None Reported - Past Family History Mother Family Medical History: Cancer Father Family Medical History: Deep Vein Thrombosis (DVT) General Exam Limitations: no limitations General appearance: alert, in no apparent distress Head exam: Present: atraumatic, normocephalic Eye exam: Present: normal appearance, PERRL ENT exam: Present: normal exam Respiratory exam: Present: normal lung sounds bilaterally. Absent: respiratory distress, wheezes Cardiovascular Exam: Present: regular rate, normal rhythm GI/Abdominal exam: Present: soft. Absent: distended, tenderness Neurological exam: Present: alert Psychiatric exam: Present: normal affect, normal mood Skin exam: Present: other (There is a small area of induration on the left lower breast with minimal surrounding cellulitis. There is no drainable abscess. There is no lymphadenopathy. This appears to have drained previously.) Course Vital Signs 12/21/22 13:21 Temperature 98.0 F Pulse Rate 88 Respiratory 18 Rate Blood Pressure 112/74 O2 Sat by Pulse 98 Oximetry Medical Decision Making - Medical Decision Making Was pt. sent in by a medical professional or institution (Dr. PA, MARKETING PROGRAM MANAGER, urgent care, hospital, or [facility]...) When possible be specific @ -No Did you speak to anyone other than the patient for history (EMS, parent, family, police, friend...)? What history was obtained from this source @ -No Did you review nursing and triage notes (agree or disagree)? Why? @ -I reviewed and agree with nursing and triage notes Were old charts reviewed (outside hosp., previous admission, EMS record, old EKG, old radiological studies, urgent care reports/EKG's, [facility] records)? Report findings @ -No old charts were reviewed Differential Diagnosis (chest pain, altered mental status, abdominal pain women, abdominal pain men, vaginal bleeding, weakness, fever, dyspnea, syncope, headache, dizziness, GI bleed, back pain, seizure, CVA, palpatations, mental health, musculoskeletal)? @ -not applicable EKG interpreted by me (3pts min.). @ -As above X-rays interpreted by me (1pt min.). @ -None done CT interpreted by me (1pt min.). @ -None done U/S interpreted by me (1pt. min.). @ -None done What testing was considered but not performed or refused? (CT, X-rays, U/S, labs)? Why? @ -None What meds were considered but not given or refused? Why? @ -None Did you discuss the management of the patient with other professionals (professionals i.e. , PA, MARKETING PROGRAM MANAGER, lab, RT, psych nurse, social science manager, cashier tube room, teacher, founder and chief technical officer, case fitter)? Give summary @ -No Was smoking cessation discussed for >3mins.? @ -No Was critical care preformed (if so, how long)? @ -No Were there social determinants of health that impacted care today? How? (Homelessness, low income, unemployed, alcoholism, drug addiction, transportati on, low edu. Level, literacy, decrease access to med. care, longterm, rehab)? @ -No Was there de-escalation of care discussed even if they declined (Discuss DNR or withdrawal of care, Hospice)? DNR status @ -No What co-morbidities impacted this encounter? (DM, HTN, Smoking, COPD, CAD, Cancer, CVA, ARF, Chemo, Hep., AIDS, mental health diagnosis, sleep apnea, morbid obesity)? @ -Smoking Was patient admitted / discharged? Hospital course, mention meds given and route, prescriptions, significant lab abnormalities, going to OR and other pertinent info. @ -57 yo female with an area of cellulitis and previously drained abscess to the left breast. There is no drainable abscess currently. No fever, stable vitals. Patient started on Bactrim and should follow closely with her primary care physician to ensure that there is resolution. Undiagnosed new problem with uncertain prognosis? @ -No Drug Therapy requiring intensive monitoring for toxicity (Heparin, Nitro, Insulin, Cardizem)? @ -No Were any procedures done? @ -No Diagnosis/symptom? @ -Abscess, cellulitis Acute, or Chronic, or Acute on Chronic? @ -Acute Uncomplicated (without systemic symptoms) or Complicated (systemic symptoms)? @ -[Uncomplicated Side effects of treatment? @ -No Exacerbation, Progression, or Severe Exacerbation? @ -No Poses a threat to life or bodily function? How? (Chest pain, [place], NM, pneumonia, PE, COPD, DKA, ARF, appy, cholecystitis, CVA, Diverticulitis, Homicidal, Suicidal, threat to staff... and all critical care pts) @ -No Disposition Clinical Impression: Cellulitis, Abscess Disposition: HOME SELF-CARE Condition: Good Instructions (If sedation given, give patient instructions): Cellulitis (ED), Abscess (ED) Prescriptions: Sulfamethox-Tmp 800-160Mg [Bactrim DS 800-160 mg] 1 tab PO Q12HR 10 Days #20 tab Is patient prescribed a controlled substance at d/c from ED?: No Referrals: Karl Sams DO [Primary Care Provider] - 1-2 days Time of Disposition: 13:50
[2022-12-21 14:27] VITALS: TEMP 98.2
== END 2022-12-21 14:27 | disposition home or self-care (01) ==
LOC: EC 13:10
DX: N61.1 Abscess of the breast and nipple (principal); I25.10 Atherosclerotic heart disease of native coronary artery without angina pectoris; F17.200 Nicotine dependence, unspecified, uncomplicated; Z79.899 Other long term (current) drug therapy
CPT/HCPCS: 99283

== ENCOUNTER → 2023-05-14 | Outpatient (CLI) | payer MEDICARE, OTHER ==
--- NOTE | 2023-05-14 14:53 | BD ---
EXAMINATION TYPE: Axial Bone Density DATE OF EXAM: 05/14/2023 CLINICAL HISTORY: 57 years old Female. ICD-10 CODE: Z78.0 ASYMPTOMATIC [place] Height: 63 Weight: 168 FRAX RISK QUESTIONS: History of Fracture in Adulthood: yes Current Tobacco Use: yes RISK FACTORS HISTORY OF: rt wrist and forearm fractures, Postmenopausal woman: yes, at age 51 Hyperparathyroidism: no Adrenal Insufficiency: no MEDICATIONS: Additional Medications: bp meds, Additional History: hypertension, EXAM MEASUREMENTS: Bone mineral densitometry was performed using the [employer] System. Bone mineral density as measured about the Lumbar spine is: ----- L1-L4(G/cm2): 1.152 T Score Values are as follows: ----- L1: -0.7 ----- L2: 0.1 ----- L3: 0.0 ----- L4: -0.4 ----- L1-L4: -0.2 Z Score Values are as follows: ----- L1: -0.1 ----- L2: 0.7 ----- L3: 0.5 ----- L4: 0.1 ----- L1-L4: 0.3 Bone mineral density has: Decreased -14.5% since study of: 04.07.2018 Bone mineral density about the R hip (g/cm2): 0.888 Bone mineral density about the L hip (g/cm2): 0.908 T Score values are as follows: -----R Neck: -2.1 -----L Neck: -1.6 -----R Total: -0.9 -----L Total: -0.8 Z Score values are as follows: -----R Neck: -1.2 -----L Neck: -0.8 -----R Total: -0.5 -----L Total: -0.3 Bone mineral density has: Decreased -9.2% since study of: FRAX%s: The graph provided illustrates a 15.4% chance for a major osteoporotic fx and a 3.5% chance f or the hips probability for fx in 10 years time. IMPRESSION: Osteopenia (T Score between -2.5 and -1). There is slightly increased risk of fracture and the patient may be considered for treatment. Re-Screen 2-5 years. NOTE: T-SCORE=SD OF THE YOUNG ADULT MEAN.
--- NOTE | 2023-05-15 10:09 | MM ---
Reason for Exam: Screening (asymptomatic). Last screening mammogram was performed 12 month(s) ago. Patient History: Menarche at age 12. First Full-Term at age 20. Postmenopausal. Patient used Hormonal Contraceptives for 9 years. Maternal grandmother had breast cancer under age 50. Niece had breast cancer, age 29. Maternal aunt had breast cancer, age 50. Mother had breast cancer, age 40. Risk Values: Shyla 5 year model risk: 2.5%. NCI Lifetime model risk: 15.7%. Prior Study Comparison: 08/31/2019 Bilateral Diagnostic Mammogram, [facility]. 06/16/2020 Left Diagnostic Mammogram, [facility]. 04/20/2022 Bilateral MG 3D screening mammo w/cad, [facility]. Tissue Density: The breast tissue is heterogeneously dense. This may lower the sensitivity of mammography. Findings: Analyzed By CAD. There is no suspicious group of microcalcifications or new suspicious mass in either breast. Overall Assessment: Negative, BI-RAD 1 Management: Screening Mammogram of both breasts in 1 year. A clinical breast exam by your physician is recommended on an annual basis and results should be correlated with mammographic findings. Note on Shyla scores and lifetime risk: 1. A Shyla score greater than 3% is considered moderate risk. If this is the case, consider specialist referral to assess eligibility for a risk reducing agent. If overall lifetime risk for the development of breast cancer is 20% or higher, the patient may qualify for future screening with alternating mammogram and breast MRI. Electronically signed and approved by: Kristopher Berrios D.O.
== END | disposition home or self-care (01) ==
LOC: RADBDWWP 13:02
PROVIDERS: ATTEND Family Medicine
DX: Z12.31 Encounter for screening mammogram for malignant neoplasm of breast (principal); M85.89 Other specified disorders of bone density and structure, multiple sites; Z80.3 Family history of malignant neoplasm of breast; Z78.0 Asymptomatic menopausal state
CPT/HCPCS: 77063; 77067; 77080

== ENCOUNTER → 2024-06-26 | Outpatient (CLI) | payer MEDICARE, OTHER ==
--- NOTE | 2024-06-29 09:18 | MM ---
Reason for Exam: Screening (asymptomatic). Last mammogram was performed 1 year(s) and 2 month(s) ago. Patient History: Menarche at age 12. First Full-Term at age 20. Postmenopausal. Patient used Hormonal Contraceptives for 9 years. Maternal grandmother had breast cancer under age 50. Niece had breast cancer, age 29. Maternal aunt had breast cancer, age 50. Mother had breast cancer, age 40. Risk Values: Shyla 5 year model risk: 2.6%. NCI Lifetime model risk: 15.4%. Prior Study Comparison: 06/16/2020 Left Diagnostic Mammogram, [facility]. 04/20/2022 Bilateral MG 3D screening mammo w/cad, [facility]. 05/14/2023 Bilateral MG 3D screening mammo w/cad, [facility]. Tissue Density: There are scattered areas of fibroglandular density. Findings: Analyzed By CAD. Right breast: There is no suspicious group of microcalcifications or new suspicious mass. Left breast: There is no suspicious group of microcalcifications or new suspicious mass. Overall Assessment: Negative, BI-RAD 1 Management: Screening Mammogram of both breasts in [address] [facility] will attempt to contact patient to return for supplemental views and ultrasound if indicated. Patient should continue monthly self-breast exams. A clinical breast exam by your physician is recommended on an annual basis. This exam should not preclude additional follow-up of suspicious palpable abnormalities. Note on Shyla scores and lifetime risk: 1. A Shyla score greater than 3% is considered moderate risk. If this is the case, consider specialist referral to assess eligibility for a risk reducing agent. 2. If overall lifetime risk for the development of breast cancer is 20% or higher, the patient may qualify for future screening with alternating mammogram and breast MRI. [facility], , 06/29/2024 9:16 AM. Electronically signed and approved by: Lazaro Montelongo DO
== END | disposition home or self-care (01) ==
LOC: RADMAMWWP 14:24
PROVIDERS: ATTEND Family Medicine
CPT/HCPCS: 77063; 77067

== ENCOUNTER → 2024-12-10 | Outpatient (CLI) | payer MEDICARE, OTHER ==
[2024-12-10 19:04] LABS: HCT 45.6 % (37.2-46.3); MCH 32.9 pg (27.0-32.0); MCHC 32.9 g/dL (32.0-37.0); Mean Platelet Volume 9.3 FL (9.5-12.2); NRBC Per 100 WBC 0 X 10*3/uL (0.00-0.01); Platelet Count 239 X 10*3/uL (140-440); RBC 4.56 X 10*6/uL (4.10-5.20); RDW 13.3 % (11.5-14.5); WBC 6.85 X 10*3/uL (4.50-10.00)
[2024-12-10 19:11] LABS: Carbon Dioxide 25.9 mmol/L (21.6-31.8); Chloride 108 mmol/L (96-109); Sodium 145 mmol/L (135-145)
== END | disposition home or self-care (01) ==
LOC: LABPAT 13:49
PROVIDERS: ATTEND Internal Medicine Interventional Cardiology
DX: Z01.812 Encounter for preprocedural laboratory examination (principal); I70.213 Atherosclerosis of native arteries of extremities with intermittent claudication, bilateral legs
CPT/HCPCS: 36415; 80051; 82565; 84520; 85027

== ENCOUNTER → 2024-12-28 | Day surgery (SDC) | payer MEDICARE, OTHER ==
[2024-12-24 15:12] VITALS: BMI 30.1
[~2024-12-28] MED LIST: EMPTY BAG 1 BAG with SODIUM CHLORIDE 0.9% 1,000 ML IV SCH; NALOXONE 0.4 MG/ML 1 ML VIAL IVP PRN; SODIUM CHLORIDE 0.9% 1,000 ML in EMPTY BAG 1 BAG IV SCH
[2024-12-28 10:54] VITALS: TEMP 97.8
[2024-12-28] MEDS: MIDAZOLAM 2 MG/2 ML VIAL IVP ONE (12:40)
[2024-12-28] MEDS: IV FLUID CONTINUATION 1,000 ML IV ONE (12:40)
[2024-12-28] MEDS: LIDOCAINE 1% INJ 10MG/ML (20 ML MDV) SQ ONE (12:42)
[2024-12-28] MEDS: VERAPAMIL SYRINGE (5 MG/10 ML) INTRAARTER ONE (12:43)
[2024-12-28] MEDS: HEPARIN SODIUM 1,000 UN/ML (10ML VL) IV ONE (12:48)
[2024-12-28] MEDS: SODIUM CHLORIDE 0.9% 1,000 ML IV ONE (12:49)
[2024-12-28] MEDS: IOPAMIDOL-370 100ML BTL INJ ONE (12:57)
--- NOTE | 2024-12-28 13:00 | P.PCN ---
Date of Procedure: 12/28/24 Operative Findings: AN ABDOMINAL AORTOGRAM AND BILATERAL LOWER EXTREMITIES RUNOFF PERFORMING PHYSICIAN: Dylan De Leon MD PROCEDURE PERFORMED: 1. An abdominal aortogram 2. Bilateral lower extremities runoff 3. Ultrasound-guided access of the right radial INDICATION: Symptomatic 59-year-old female patient with abnormal lower extremity arterial duplex study COMPLICATION: None LEVEL OF SEDATION: Moderate was sedation length of moderate to sedation length of 13 minutes APPROACH: Right common femoral artery PROCEDURE DESCRIPTION: After obtaining informed consent and explaining the procedure benefits, risks, and complications, the patient was brought to the cardiac syrup machine laborer. The right groin was prepped and draped in sterile fashion. The right common femoral artery was cannulated using micropuncture technique, under ultrasound guidance. A micropuncture wire was advanced, and the micropuncture sheath was advanced over the wire, then the micropuncture sheath was exchanged over an 0.35 wire into a 5-English sheath dilator assembly then the wire and dilator were removed and sheath was flushed. We did an abdominal aortogram and bilateral lower extremities runoff using 5- English pigtail catheter using a power injection. The catheter was initially placed at the level of the renal arteries, and it was pulled into above the bifurcation of the aorta into right and left common iliac arteries. The procedure was completed and there was no complications. SELECTIVE PERIPHERAL ANGIOGRAM: The abdominal aorta: Is occluded above the iliac stents The common iliac arteries: Both common iliac arteries are occluded The external iliac arteries: Both external iliac arteries are patent The internal iliac arteries: Both internal iliac arteries are patent The common femoral arteries: Both common femoral arteries are patent Superficial femoral arteries: Both SFA are patent Popliteal arteries: Both popliteals are patent Below the knees: Three vessels runoff below the knee bilaterally CONCLUSION: Occluded bilateral iliac stents POSTPROCEDURE MANAGEMENT: SENIOR LITIGATION PARALEGAL
--- NOTE | 2024-12-28 15:43 | IR ---
EXAMINATION TYPE: IR angio abdominal w runoff DATE OF EXAM: 12/28/2024 FLUOROSCOPY Aortic injection with runoff is demonstrated. Total DAP: 18.6 Gycm2 108 images provided. [facility], , 12/28/2024 3:40 PM
[2024-12-28 19:21] VITALS: RESP 16
[2024-12-28 19:23] VITALS: BP 128/71; PULSE 76
== END ==
LOC: CATHCVL 10:04
PROVIDERS: ATTEND Internal Medicine Interventional Cardiology
DX: I70.213 Atherosclerosis of native arteries of extremities with intermittent claudication, bilateral legs (principal); T82.858A Stenosis of other vascular prosthetic devices, implants and grafts, initial encounter; I35.0 Nonrheumatic aortic (valve) stenosis
CPT/HCPCS: 75710; 36200; J2003; J1644; J2250; Q9967; 75625; 75716

== ENCOUNTER 2024-12-30 08:06 | Day surgery (SDC) | payer MEDICARE, OTHER ==
[2024-12-29 08:38] VITALS: BMI 30.4
[~2024-12-30 08:06] MED LIST changes: +ALPRAZolam 0.25 MG TAB PO PRN; +ALPRAZolam 0.5 MG TAB PO PRN; -EMPTY BAG 1 BAG with SODIUM CHLORIDE 0.9% 1,000 ML IV SCH; -NALOXONE 0.4 MG/ML 1 ML VIAL IVP PRN; -SODIUM CHLORIDE 0.9% 1,000 ML in EMPTY BAG 1 BAG IV SCH; +ZOLPIDEM 5 MG TAB PO PRN
[2024-12-30] MEDS: IV FLUID CONTINUATION 1,000 ML IV ONE (08:16)
[2024-12-30] MEDS: EMPTY BAG 1 BAG with SODIUM CHLORIDE 0.9% 1,000 ML IV SCH (08:34)
[2024-12-30 08:40] LABS: Basophils # (A) 0.04 10*3/uL (0.00-0.10); Basophils % (A) 0.5 %; Eosinophils # (A) 0.05 10*3/uL (0.04-0.35); Eosinophils % (A) 0.7 %; HCT 44.7 % (37.2-46.3); HGB 15.7 g/dL (12.0-15.0); Lymphocytes # (A) 1.79 10*3/uL (0.90-5.00); Lymphocytes % (A) 23.6 %; MCH 33.9 pg (27.0-32.0); MCHC 35.1 g/dL (32.0-37.0); MCV 96.5 fL (80.0-97.0); Mean Platelet Volume 8.9 fL (9.5-12.2); Monocytes # (A) 0.69 10*3/uL (0.20-1.00); Monocytes % (A) 9.1 %; Neutrophils # (A) 4.99 10*3/uL (1.80-7.70); Platelet Count 215 10*3/uL (140-440); RBC 4.63 10*6/uL (4.10-5.20); RDW 13.1 % (11.5-14.5); WBC 7.57 10*3/uL (4.50-10.00)
[2024-12-30 09:22] LABS: African American GFR (CKD) >90 (>60 ml/min/1.73 sqM); Anion Gap 5 mmol/L; Blood Urea Nitrogen 11 mg/dL (7-17); Calcium 9.2 mg/dL (8.4-10.2); Carbon Dioxide 26 mmol/L (22-30); Chloride 106 mmol/L (98-107); Glucose 96 mg/dL (74-99); Non-African American GFR(CKD) 79 (>60 ml/min/1.73 sqM); Potassium 3.7 mmol/L (3.5-5.1); Sodium 137 mmol/L (137-145)
[2024-12-30] MEDS: fentaNYL (PF) 50 MCG/1 ML VIAL IVP ONE (10:38)
[2024-12-30] MEDS: LIDOCAINE 1% INJ 10MG/ML (20 ML MDV) SQ ONE (10:38)
[2024-12-30] MEDS: MIDAZOLAM 2 MG/2 ML VIAL IVP ONE ×3 (10:38→12:03)
[2024-12-30] MEDS: HEPARIN SODIUM 1,000 UN/ML (10ML VL) IVP ONE (10:50)
[2024-12-30] MEDS: HEPARIN SODIUM,PORCINE (1 ML) 2,500 UNIT in SODIUM CHLORIDE 0.9% 250 ML IRRIGATION PRN (10:51)
[2024-12-30] MEDS: HEPARIN SODIUM,PORCINE 10,000 UNIT in SODIUM CHLORIDE 0.9% 1,000 ML IRRIGATION PRN (10:51)
[2024-12-30] MEDS: CLOPIDOGREL 75 MG TAB PO ONE (11:17)
[2024-12-30] MEDS: IOPAMIDOL-370 100ML BTL INJ ONE (12:48)
[2024-12-30] MEDS ORDERED: tiZANidine 4 MG TAB PO PRN (13:11)
[2024-12-30] MEDS ORDERED: NALOXONE 0.4 MG/ML 1 ML VIAL IVP PRN (13:11)
[2024-12-30] MEDS: SODIUM CHLORIDE 0.9% 1,000 ML in EMPTY BAG 1 BAG IV SCH (13:15)
--- NOTE | 2024-12-30 13:22 | P.PCN ---
Date of Procedure: 12/30/24 Operative Findings: PERCUTANEOUS PERIPHERAL INTERVENTION Performing physician Dylan De Leon M.D. Procedure performed 1. Successful balloon angioplasty of the infrarenal aorta 2. Successful balloon angioplasty and stenting of bilateral common iliac artery using 7.0 x 39 and 7.0 x 37 balloon expandable stents with an excellent angiographic result 3. Rota Jeff of bilateral common iliac arteries and IVUS of bilateral common iliac arteries and infrarenal aorta 4. An angiogram of the infrarenal aorta and bilateral common iliac arteries and bilateral common femoral arteries 5. Ultrasound-guided access of bilateral common femoral arteries 6. 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 The right and left common femoral arteries were cannulated using micropuncture technique under ultrasound guidance a micropuncture wire passed easily then from the get go I placed a 7 Spanish 23 cm sheath which was a Brite tip sheath in both femoral arteries under fluoroscopy guidance and the sheath was advanced to the distal common iliac arteries bilaterally. Anticoagulation was initiated using heparin with continuous ACT monitoring. Subsequently I did cross the [employer] of bilateral common iliac arteries using a 035 stiff Glidewire with the backup support of CXI catheter. The catheter was advanced all the way to the infrarenal aorta with injection of contrast was performed and showed that I was in the true lumen. Subsequently the 035 wire was exchanged in 2014 wire and IVUS was performed and showed that I was in the true lumen with possible thrombus involving bilateral common iliac arteries. I did Rota Jeff of bilateral common iliac arteries but before that I did balloon angioplasty of the infrarenal aorta using 8 mm balloon and subsequently I did balloon angioplasty of bilateral common iliac arteries which showed good angiographic results. There was an area distal to the stented segment appeared to be in the range of 60 to 70% with dissection confirmed to be flow-limiting by Doppler wire. I did gradient measurement and that came in to be significant with a systolic to systolic gradient exceeding 30 mmHg. At that point I decided to cover both of them with a stent. So I stented both using a 7.0 x 39 on the right and 7.0 x 37 mm on the left. Subsequently I did kissing balloon of bilateral common iliac arteries in previous stents. Final angiogram was performed and showed good angiographic results. Please note that during the procedure I did perform an angiogram of the infrarenal aorta and bilateral common iliac artery with a pigtail was placed in the infrarenal aorta. By the end I did exchange my long sheath into short sheath using 035 stiff Glidewire before I did selective bilateral common femoral arteries angiogram and the procedure was performed with no complication Postprocedure management 1. Dual antiplatelet therapy 2. Aggressive cholesterol control 3. Risk factors modification 4. Follow-up with the patient
--- NOTE | 2024-12-30 13:30 | IR ---
EXAMINATION TYPE: IR stent intravas non coronary DATE OF EXAM: 12/30/2024 FLUOROSCOPY Leg pain, 33.1m/50.0DAP, bilateral gr suture in No images are provided [facility], , 12/30/2024 1:28 PM
[2024-12-30] MEDS: HYDROcodone/APAP 10-325MG 1 EACH TAB PO ONE (13:50)
[2024-12-30] MEDS: METOPROLOL TARTRATE 50 MG TAB PO SCH (21:42)
[2024-12-30] MEDS: HYDROcodone/APAP 10-325MG 1 EACH TAB PO SCH (21:43)
[2024-12-31 06:04] LABS: African American GFR (CKD) >90 (>60 ml/min/1.73 sqM); Non-African American GFR(CKD) 84 (>60 ml/min/1.73 sqM)
[2024-12-31] MEDS: SYMBICORT 160-4.5 MCG INHALER INHALATION SCH (08:12)
[2024-12-31 08:26] VITALS: BP 122/74; PULSE 78; RESP 18; TEMP 98.1
[2024-12-31] MEDS: CLOPIDOGREL 75 MG TAB PO SCH (09:13)
[2024-12-31] MEDS: EZETIMIBE 10 MG TAB PO SCH (09:13)
[2024-12-31] MEDS: cilostazoL 100 MG TAB PO SCH (09:52)
--- NOTE | 2024-12-31 10:02 | US ---
EXAMINATION TYPE: US lower ext pseudo artery RT DATE OF EXAM: 12/31/2024 COMPARISON: NONE CLINICAL INDICATION: Female, 59 years old with history of Post vascular procedure ecchymosis; possibl e psuedo right groin TECHNIQUE:: Grayscale, color Doppler and spectral Doppler imaging performed of the groin, post cardia c catheter to assess for pseudoaneurysm. FINDINGS: SIDE PERFORMED: Right, pt had vascular procedure with right groin approach yesterday Color and Waveform Doppler performed to assess for the presence of pseudoaneurysm; Is there ultrasound evidence of a pseudoaneurysm: No Is there evidence of AV shunting: No Is there a fluid collection present: Yes, anterior to right BUSINESS TAXES SPECIALIST at puncture site= 3.5 x 0.6 x 2.4 cm IMPRESSION: Poorly defined hematoma at the right groin puncture site measuring 3.5 x 0.6 x 2.4 cm. No sonographic findings of pseudoaneurysm at this time. [facility], , 12/31/2024 10:00 AM
== END 2024-12-31 11:34 | disposition home or self-care (01) ==
LOC: CATHCVL 08:06 → 6NMEDSUR 12:55 → CATHCVL 12-31 11:34
PROVIDERS: ATTEND Internal Medicine Interventional Cardiology
DX: I73.9 Peripheral vascular disease, unspecified (principal); I10 Essential (primary) hypertension; E78.5 Hyperlipidemia, unspecified; F17.200 Nicotine dependence, unspecified, uncomplicated; Z82.49 Family history of ischemic heart disease and other diseases of the circulatory system; Z78.9 Other specified health status; Z79.82 Long term (current) use of aspirin; Z79.899 Other long term (current) drug therapy
CPT/HCPCS: 99152; 99153; 94640; 37221; 37223; 37252; 37253; 37246; 80048; 82565; 85025; 93975; 93926; C1894 ×2; C1725 ×2; C1876; C1769 ×3; C1753; C2628; J2250; J1644 ×3; J2003; Q9967; J3010; 0238T

== ENCOUNTER 2025-01-05 19:23 | Emergency (ER) | payer MEDICARE, OTHER ==
--- NOTE | 2025-01-05 20:33 | ED ---
General Adult HPI - General Source: patient, RN notes reviewed Mode of arrival: ambulatory Limitations: no limitations <Grayson Brown - Last Filed: 01/05/25 20:30> <Pnoce Vincent - Last Filed: 01/05/25 21:54> - General Chief complaint: Skin/Abscess/Foreign Body Stated complaint: R Leg pain-Post Op Time Seen by Provider: 01/05/25 19:40 - History of Present Illness Initial comments: Quick note: This is a 59-year-old female with history including PAD presenting for right calf pain starting yesterday. Patient states she recently had an angioplasty surgery performed in both lower extremities last week before experiencing pain in the back of her right calf and knee. Patient states she is unable to walk due to the pain. States pain is 10/10 when standing and 7/10 when seated. Otherwise denies recent trauma. (Grayson Brown) Dictation was produced using [employer] (by [employer]) dictation software. please excuse any grammatical, word or spelling errors. Chief Complaint: 59-year-old female presents with right lower extremity pain History of Present Illness: Patient is a 59-year-old female had recent peripheral arterial procedure performed by vascular surgery. States that shortly after she started to develop some calf tenderness, right popliteal tenderness and medial thigh tenderness. She came to the ER for concerns of DVT. The ROS documented in this emergency department record has been reviewed and confirmed by me. Those systems with pertinent positive or negative responses have been documented in the HPI. All other systems are other negative and/or noncontributory. (Ponce Vincent) - Related Data Home Medications Medication Instructions Recorded Confirmed HYDROcodone/APAP 10-325MG [[place] 1 tab PO BID 07/20/19 12/30/24 10-325] Ezetimibe [Zetia] 10 mg PO DAILY 12/09/24 12/30/24 Fluticasone/Vilanterol [Breo 1 puff INHALATION DAILY 12/09/24 12/30/24 Ellipta 200-25 Mcg Inhaler] Metoprolol Tartrate [Lopressor] 50 mg PO BID 12/09/24 12/30/24 cilostazoL 100 mg PO DAILY 12/09/24 12/30/24 tiZANidine [Zanaflex] 4 mg PO DIRECTED PRN 12/09/24 12/30/24 Previous Rx's Medication Instructions Recorded Aspirin 81 mg PO DAILY #90 tab 12/31/24 Clopidogrel [Plavix] 75 mg PO DAILY #90 tablet 12/31/24 Allergies Allergy/AdvReac Type Severity Reaction Status Date / Time No Known Allergies Allergy Verified 01/05/25 19:27 Review of Systems ROS Other: All systems not noted in ROS Statement are negative. <Grayson Brown - Last Filed: 01/05/25 20:30> ROS Other: All systems not noted in ROS Statement are negative. <Ponce Vincent - Last Filed: 01/05/25 21:54> ROS Statement: Those systems with pertinent positive or pertinent negative responses have been documented in the HPI. Past Medical History Past Medical History: Coronary Artery Disease (CAD), Chest Pain / Angina, COPD, Hyperlipidemia, Hypertension, Osteoarthritis (OA), Vascular Disorder Additional Past Medical History / Comment(s): Difficulty walking due to pain in both legs and back. Hx PAD. History of Any Multi-Drug Resistant Organisms: None Reported Past Surgical History: Heart Catheterization, Heart Catheterization With Stent, Tubal Ligation Additional Past Surgical History / Comment(s): Surgery for bowel obstruction, laproscopic surgery for endometriosis, lower leg stents and lower aortic stent, aortagram. Past Anesthesia/Blood Transfusion Reactions: No Reported Reaction, Motion Sickness Date of Last Stent Placement:: ? Past Psychological History: No Psychological Hx Reported Smoking Status: Former smoker Past Alcohol Use History: None Reported Past Drug Use History: None Reported - Past Family History Mother Family Medical History: Cancer Additional Family Medical History / Comment(s): Breast cancer. Father Family Medical History: Deep Vein Thrombosis (DVT) <Grayson Brown - Last Filed: 01/05/25 20:30> General Exam Limitations: no limitations <Grayson Brown - Last Filed: 01/05/25 20:30> <Ponce Vincent - Last Filed: 01/05/25 21:54> - General Exam Comments Initial Comments: Visual Physical Exam Vital signs reviewed General: Well-appearing, nontoxic, no acute distress. Head: Normocephalic, atraumatic Eyes: PERRLA, EOMI ENT: Airway patent Chest: Nonlabored breathing Skin: No visual rash, normal skin tone Neuro: Alert and oriented 3 Musculoskeletal: No gross abnormalities (Grayson Brown) PHYSICAL EXAM: General Impression: Alert and oriented x3, not in acute distress HEENT: Normocephalic atraumatic, extra-ocular movements intact, pupils equal and reactive to light bilaterally, mucous membranes moist. Cardiovascular: Heart regular rate and rhythm Chest: Able to complete full sentences, no retractions, no tachypnea Abdomen: abdomen soft, non-tender, non-distended, no organomegaly Musculoskeletal: Pulses present and equal in all extremities, no peripheral edema, palpatory tenderness to the right calf, right popliteal space and right medial thigh Motor: no focal deficits noted Neurological: CN II-XII grossly intact, no focal motor or sensory deficits noted Skin: Intact with no visualized rashes Psych: Normal affect and mood (Ponce Vincent) Course Vital Signs 01/05/25 19:24 Temperature 99 F Pulse Rate 91 Respiratory 18 Rate Blood Pressure 139/93 O2 Sat by Pulse 96 Oximetry Medical Decision Making <Grayson Brown - Last Filed: 01/05/25 20:30> <Ponce Vincent - Last Filed: 01/05/25 21:54> - Medical Decision Making I completed the quick note portion of this chart signed CONSUELO Mcfadden (Grayson Brown) Was pt. sent in by a medical professional or institution ([facility], [employer], urgent care, hospital, or [place] health care facility...) When possible be specific @ -No Did you speak to anyone other than the patient for history (EMS, parent, family, police, friend...)? What history was obtained from this source @ -No Did you review nursing and triage notes (agree or disagree)? Why? @ -I reviewed and agree with nursing and triage notes Were old charts reviewed (outside hosp., previous admission, EMS record, old EKG, old radiological studies, urgent care reports/EKG's, [place] health care facility records)? Report findings @ -No old charts were reviewed Differential Diagnosis (chest pain, altered mental status, abdominal pain women, abdominal pain men, vaginal bleeding, musculoskeletal, weakness, fever, dyspnea, syncope, headache, dizziness, GI bleed, back pain, seizure, CVA, palpatations, mental health)? @ -DVT, cellulitis, arterial thrombosis EKG interpreted by me (3pts min.). @ -None done X-rays interpreted by me (1pt min.). @ -None done CT interpreted by me (1pt min.). @ -None done U/S interpreted by me (1pt. min.). @ -Ultrasound shows no lower extremity DVT What testing was considered but not performed or refused? (CT, X-rays, U/S, labs)? Why? @ -None What meds were considered but not given or refused? Why? @ -None Was smoking cessation discussed for >3mins.? @ -No Were there social determinants of health that impacted care today? How? (Homelessness, low income, unemployed, alcoholism, drug addiction, transportation, low edu. Level, literacy, decrease access to med. care, fci, rehab)? @ -No Was there de-escalation of care discussed even if they declined (Discuss DNR or withdrawal of care, Hospice)? DNR status @ -No What co-morbidities impacted this encounter? (DM, HTN, Smoking, COPD, CAD, Cancer, CVA, ARF, Chemo, Hep., AIDS, mental health diagnosis, sleep apnea, morbid obesity)? @ -None Was patient admitted / discharged? Hospital course, mention meds given and route, prescriptions, significant lab abnormalities, going to OR and other pertinent info. @ -59-year-old female with symptoms concerning for right lower extremity DVT. Vital signs are stable. Patient well-appearing. Ultrasound is negative for DVT. Patient discharged advised follow-up with primary care doctor. Did you discuss the management of the patient with other professionals (professionals i.e. , PA, GAME AND [employer] PROTECTOR, lab, RT, psych nurse, social media editor, online publisher, teacher, licensing officer, field nurse case manager)? Give summary @ -No Was critical care preformed (if so, how long)? @ -No Undiagnosed new problem with uncertain prognosis? @ -No Drug Therapy requiring intensive monitoring for toxicity (Heparin, Nitro, Insulin, Cardizem)? @ -No Were any procedures done? @ -No Diagnosis/symptom? Acute, or Chronic, or Acute on Chronic? Uncomplicated (without systemic symptoms) or Complicated (systemic symptoms)? @ -Calf pain Side effects of treatment? @ -No Exacerbation, Progression, or Severe Exacerbation? @ -No Poses a threat to life or bodily function? How? (Chest pain, [place], [place], pneumonia, PE, COPD, DKA, ARF, appy, cholecystitis, CVA, Diverticulitis, Homicidal, Suicidal, threat to staff... and all critical care pts) @ -No (Ponce Vincent) Disposition <Grayson Brown - Last Filed: 01/05/25 20:30> Is patient prescribed a controlled substance at d/c from ED?: No Time of Disposition: 21:54 <Ponce Vincent - Last Filed: 01/05/25 21:54> Clinical Impression: Calf pain Disposition: HOME SELF-CARE Condition: Fair Instructions (If sedation given, give patient instructions): Leg Pain (ED) Referrals: Karl Sams DO [Primary Care Provider] - 1-2 days
--- NOTE | 2025-01-05 21:28 | US ---
EXAMINATION TYPE: US venous doppler duplex LE RT DATE OF EXAM: 01/05/2025 9:01 PM COMPARISON: NONE CLINICAL INDICATION: Female, 59 years old with history of pain; patient states leg pain after angiopl asty and 2 stents put in on saturday. no hx dvt, Pain TECHNIQUE: The lower extremity deep venous system is examined utilizing real time linear array sonog zain with graded compression, color doppler sonography, and spectral doppler. SIDE PERFORMED: Right FINDINGS: VESSELS IMAGED: Common Femoral Vein Deep Femoral Vein Greater Saphenous Vein * Femoral Vein Popliteal Vein Small Saphenous Vein * Proximal Calf Veins (* superficial vessels) Right Leg: Negative for DVT, Color Doppler imaging shows patency of the vessels. Spectral waveforms are within normal limits. IMPRESSION: Right lower extremity ultrasound negative for deep venous thrombosis [facility], , 01/05/2025 9:26 PM
[2025-01-05 22:14] VITALS: BP 133/76; PULSE 80; RESP 17; TEMP 98.9
== END 2025-01-05 22:14 | disposition home or self-care (01) ==
LOC: EC 19:23
DX: M79.661 Pain in right lower leg (principal); Z87.891 Personal history of nicotine dependence
CPT/HCPCS: 99283